=== PATIENT | female | born 1990 | race Asian ===

== ENCOUNTER 2017-01-03 10:43 | Emergency (ER) | payer MEDICAID ==
[~2017-01-03] VITALS: Ht 170.2 cm; Wt 143.3 kg
[2017-01-03 10:47] VITALS: BP 138/82
[2017-01-03] MEDS ORDERED: ALBUTEROL SULFATE 2.5 MG/3 ML NPPB ONE (12:00)
[2017-01-03] MEDS ORDERED: ALBUTEROL SULFATE 2.5 MG/3 ML ONE (12:10)
== END 2017-01-03 12:30 | disposition home or self-care (01) ==
LOC: ED 12:15
DX: J20.8 Acute bronchitis due to other specified organisms (principal); R06.00 Dyspnea, unspecified; Z90.49 Acquired absence of other specified parts of digestive tract
CPT/HCPCS: 94640; 99283; J7613